=== PATIENT | male | born 1950 | race Caucasian/White ===

== ENCOUNTER 2022-11-13 15:07 | Inpatient (IN) | payer MEDICARE ==
[~2022-11-13] VITALS: Ht 177.8 cm; Wt 87.1 kg
[2022-11-13] MEDS ORDERED: SODIUM CHLORIDE 0.9% 1000ML 1,000 ML IV STA (15:21)
[2022-11-13] MEDS ORDERED: ONDANSETRON HCL INJ 2MG/ML 2ML 2 MG/ML VIAL IV STA (15:21)
[2022-11-13 15:40] LABS: BASOPHILS % 0.3 % (0.0-1.0); EOSINOPHILS % 0.6 % (0.0-6.0); HEMATOCRIT 40.2 % (38.2-49.6); HEMOGLOBIN 13.3 g/dL (14.0-18.0); LYMPHOCYTES # (AUTO) 0.6 (1.0-3.2); LYMPHOCYTES % 10.1 % (18.0-39.1); MEAN CORPUSCULAR HGB CONC 33.1 g/dL (31-35); MEAN CORPUSCULAR VOLUME 96.6 fL (81-99); MONOCYTES # (AUTO) 0.6 (0.2-0.8); MONOCYTES % 9.6 % (4.4-11.3); NEUTROPHILS % 79.1 % (38.7-80.0); PLATELET COUNT 178 x10e3/uL (140-360); RED BLOOD COUNT 4.16 x10e6/uL (4.3-5.7); RED CELL DISTRIBUTION WIDTH 12.7 % (11.7-14.4)
[2022-11-13 15:55] LABS: INR 0.91; PROTHROMBIN TIME 12.8 seconds (11.9-14.5)
[2022-11-13 15:56] LABS: PARTIAL THROMBOPLASTIN TIME 29.1 seconds (23.8-35.5)
[2022-11-13 16:07] LABS: BILIRUBIN,DIRECT 0.3 mg/dL (0.0-0.5)
[2022-11-13 16:08] LABS: ANION GAP 12.1 mmol/L (8-16); CALCIUM 9.3 mg/dL (8.4-10.2); CREATININE, SERUM 1.05 mg/dL (0.72-1.25); POTASSIUM 4.1 mmol/L (3.5-5.1)
[2022-11-13 16:32] LABS: CLARITY,URINE CLEAR (CLEAR); COLOR,URINE STRAW (YELLOW); KETONES,URINE NEGATIVE (NEGATIVE); LEUKOCYTE ESTERASE ,URINE NEGATIVE (NEGATIVE); NITRITE,URINE NEGATIVE (NEGATIVE); PROTEIN,URINE DIPSTICK NEGATIVE (NEGATIVE); URINE UROBILINOGEN 0.2 mg/dL (0.2 - 1)
[2022-11-13] MEDS ORDERED: ONDANSETRON HCL INJ 2MG/ML 2ML 2 MG/ML VIAL IV PRN (17:45)
[2022-11-13] MEDS ORDERED: Morphine 4mg INJECTION 4 MG/ML INJ IV PRN (17:45)
[2022-11-13 20:55] VITALS: BP 148/74; PULSE 64; RESP 20; TEMP 99
[2022-11-13 21:04] VITALS: BP 148/74; PULSE 64; RESP 20; TEMP 99; O2SAT 99
[2022-11-13] MEDS ORDERED: FINASTERIDE5 MG PO (21:18)
[2022-11-13] MEDS ORDERED: GABAPENTIN100 MG PO (21:18)
[2022-11-13] MEDS ORDERED: ATORVASTATIN CA40 MG PO (21:18)
[2022-11-13] MEDS ORDERED: ATENOLOL50 MG (21:18)
[2022-11-13] MEDS ORDERED: TAMSULOSIN PO (21:18)
[2022-11-13] MEDS ORDERED: ASPIRIN81 MG PO (21:19)
[2022-11-13 21:40] VITALS: BP 148/74; PULSE 64; RESP 18; TEMP 99; O2SAT 99
[2022-11-14] VITALS (7 sets, daily range): BP systolic 143–156; BP diastolic 71–91; PULSE 64–83; RESP 17–20; TEMP 98.2–99.1; O2SAT 96–99
[2022-11-14 05:51] LABS: BASOPHILS % 0.5 % (0.0-1.0); EOSINOPHILS % 0.6 % (0.0-6.0); HEMOGLOBIN 12.5 g/dL (14.0-18.0); LYMPHOCYTES # (AUTO) 0.8 (1.0-3.2); LYMPHOCYTES % 12.3 % (18.0-39.1); MEAN CORPUSCULAR HGB CONC 32.9 g/dL (31-35); MEAN CORPUSCULAR VOLUME 97.2 fL (81-99); MONOCYTES # (AUTO) 0.8 (0.2-0.8); NEUTROPHILS # (AUTO) 4.9 (2.1-6.9); NEUTROPHILS % 74.1 % (38.7-80.0); PLATELET COUNT 179 x10e3/uL (140-360); RED BLOOD COUNT 3.91 x10e6/uL (4.3-5.7); RED CELL DISTRIBUTION WIDTH 12.7 % (11.7-14.4)
[2022-11-14 06:22] LABS: ALBUMIN 3.5 g/dL (3.5-5.0); ANION GAP 12.9 mmol/L (8-16); CREATININE, SERUM 1.15 mg/dL (0.72-1.25); POTASSIUM 3.9 mmol/L (3.5-5.1)
[2022-11-14] MEDS ORDERED: SIMETHICONE 80 MG CHEW PO PRN (09:15)
[2022-11-14] MEDS ORDERED: DOCUSATE SODIUM 100 MG CAP PO PRN (09:15)
[2022-11-14] MEDS: SODIUM CHLORIDE 0.45% 1,000 ML IV SCH (09:45)
[2022-11-14] MEDS ORDERED: ENOXAPARIN SOD INJ 40 MG/0.4 ML SYR SC SCH (17:00)
[2022-11-14] MEDS ORDERED: FINASTERIDE 5 MG TAB PO SCH (21:00)
[2022-11-14] MEDS ORDERED: TAMSULOSIN HCL 0.4 MG CAP PO SCH (21:00)
[2022-11-14] MEDS ORDERED: GABAPENTIN 100 MG CAP PO SCH (21:00)
[2022-11-14] MEDS: METOPROLOL TARTRATE 25 MG TAB PO SCH (21:13)
[2022-11-15] VITALS: BP 157/83; PULSE 73; RESP 20; TEMP 99; O2SAT 98
[2022-11-15] MEDS: SODIUM CHLORIDE 0.45% 1,000 ML IV SCH (00:39)
[2022-11-15 04:00] VITALS: BP 142/85; PULSE 80; RESP 19; TEMP 98.4; O2SAT 95
[2022-11-15 06:04] LABS: BASOPHILS % 0.4 % (0.0-1.0); EOSINOPHILS % 0.5 % (0.0-6.0); HEMATOCRIT 40.2 % (38.2-49.6); HEMOGLOBIN 13.4 g/dL (14.0-18.0); LYMPHOCYTES # (AUTO) 1.2 (1.0-3.2); LYMPHOCYTES % 15.5 % (18.0-39.1); MEAN CORPUSCULAR HEMOGLOBIN 31.8 pg (28-32); MEAN CORPUSCULAR HGB CONC 33.3 g/dL (31-35); MEAN CORPUSCULAR VOLUME 95.5 fL (81-99); MONOCYTES # (AUTO) 0.8 (0.2-0.8); MONOCYTES % 10.1 % (4.4-11.3); NEUTROPHILS # (AUTO) 5.5 (2.1-6.9); NEUTROPHILS % 73.1 % (38.7-80.0); PLATELET COUNT 183 x10e3/uL (140-360); RED BLOOD COUNT 4.21 x10e6/uL (4.3-5.7); RED CELL DISTRIBUTION WIDTH 12.5 % (11.7-14.4)
[2022-11-15 06:31] LABS: CALCIUM 9.2 mg/dL (8.4-10.2); CREATININE, SERUM 1.07 mg/dL (0.72-1.25)
[2022-11-15 06:47] LABS: ALBUMIN 3.6 g/dL (3.5-5.0); BILIRUBIN,DIRECT 0.4 mg/dL (0.0-0.5)
[2022-11-15] MEDS ORDERED: URSODIOL300 MG PO (08:46)
[2022-11-15] MEDS ORDERED: ONDANSETRON ODT4 MG PO (08:46)
[2022-11-15] MEDS ORDERED: CEPHALEXIN500 MG PO (08:52)
[2022-11-15] MEDS: METOPROLOL TARTRATE 25 MG TAB PO SCH (08:52)
[2022-11-15] MEDS ORDERED: METRONIDAZOLE500 MG PO (08:52)
== END 2022-11-15 09:14 | disposition home or self-care (01) | DRG 446 ==
LOC: ER 15:16 → ERHOLD 17:36 → MED/SURG2 20:33
PROVIDERS: ADMIT Internal Medicine; ATTEND Internal Medicine
DX: K80.20 Calculus of gallbladder without cholecystitis without obstruction (principal); I10 Essential (primary) hypertension; N40.0 Benign prostatic hyperplasia without lower urinary tract symptoms; R74.01 Elevation of levels of liver transaminase levels; K52.9 Noninfective gastroenteritis and colitis, unspecified; Z20.822 Contact with and (suspected) exposure to COVID-19; Z87.891 Personal history of nicotine dependence
CPT/HCPCS: 36415; 74181; 76705; 80048; 80053; 80076; 81001; 82140; 82550; 82948; 83690; 83735; 84484; 85025; 85610; 85730; 96361; 99284; J1650; J2270; J2405; J2543; J7030